=== PATIENT | male | born 1940 | race Caucasian/White ===

== ENCOUNTER 2019-02-05 08:32 | Day surgery (SDC) | payer BC, MEDICARE ==
[~2019-02-05 08:32] MED LIST: Lactated Ringers 1,000 ML IV PRN; Sodium Chloride 0.9% 10 ML Syringe FLUSH PRN
[2019-02-05] MEDS ORDERED: fentaNYL 100 MCG/2 ML SDV IV ONE (08:33)
[2019-02-05] MEDS ORDERED: Midazolam 1 MG/ML 2 ML SDV IV ONE (08:33)
[2019-02-05 11:05] VITALS: PULSE 59
[2019-02-05 11:06] VITALS: BP 124/69
--- NOTE | 2019-02-06 09:13 | OR ---
DATE OF OPERATION: 02/05/2019 SURGEON: Mindy Iniguez MD PREOPERATIVE DIAGNOSIS: Visually significant cataract, right eye. POSTOPERATIVE DIAGNOSIS: Visually significant cataract, right eye. PROCEDURES PERFORMED: Phacoemulsification with intraocular lens placement, right eye. ASSISTANTS: None. ANESTHESIA: Local with sedation. COMPLICATIONS: None. BLOOD LOSS: None. IMPLANTS: A 19.5 diopter lens implanted. CDE: 15.24. DESCRIPTION OF PROCEDURE: After risks and benefits were reviewed with the patient, consent was obtained in the preoperative area, and the operative eye was marked with a surgical pen. In the preoperative area, a pledget was used to dilate the pupil consisting of a mixture of phenylephrine 10%, cyclopentolate 2%, moxifloxacin 0.5%, and bupivacaine 0.75%. The patient was taken to the operating room, where a time-out was performed, and the patient was placed under monitored anesthesia care. Topical tetracaine was used for anesthesia. The operative eye was prepped and draped for ophthalmic surgery, and the microscope was brought into position and focussed. A paracentesis incision was made, followed by injection of preservative-free 1% lidocaine into the anterior chamber, followed by injection of Viscoat into the anterior chamber. A microkeratome blade was used to make a corneal limbal incision temporarily. A cystotome was used to make the beginning of the capsulorrhexis, which was carried around 360 degrees in a curvilinear fashion using Utrata forceps. A Anderson cannula with BSS was used to hydrodissect and hydrodelineate the nucleus. The nucleus was removed in a divide and conquer manner using phacoemulsification. Irrigation and aspiration were used to remove the remaining cortical material. Provisc was used to inflate the capsular bag, and a pre-loaded 19.5 diopter lens, serial number [id number] was injected into the capsular bag. A Sinskey hook was used to position and center the lens. Next, irrigation and aspiration was used to remove any remaining viscoelastic and cortical material from the anterior chamber. BSS on a cannula was used to inflate the anterior chamber and hydrate the wound. The wound was checked and found to be watertight. 1 mg of Moxifloxacin was injected into the anterior chamber. Drapes were removed and the eye was cleaned. A drop of brimonidine 0.15% and a drop of TobraDex was placed. The eye was shielded, and the patient was taken to the recovery room in stable condition. /[id number] RADHA/CHERYL CC: KM CHARLES PA-C
== END 2019-02-05 11:00 | disposition home or self-care (01) ==
LOC: FB.SDS 08:32
PROVIDERS: ATTEND Ophthalmology
DX: H25.13 Age-related nuclear cataract, bilateral (principal); H04.129 Dry eye syndrome of unspecified lacrimal gland; H02.886 Meibomian gland dysfunction of left eye, unspecified eyelid; H02.883 Meibomian gland dysfunction of right eye, unspecified eyelid; H35.362 Drusen (degenerative) of macula, left eye; I25.119 Atherosclerotic heart disease of native coronary artery with unspecified angina pectoris; I44.0 Atrioventricular block, first degree; E78.00 Pure hypercholesterolemia, unspecified; Z95.5 Presence of coronary angioplasty implant and graft; Z87.891 Personal history of nicotine dependence; Z79.82 Long term (current) use of aspirin; Z79.899 Other long term (current) drug therapy
CPT/HCPCS: 00142; 66984; J2250; J3010; V2632

== ENCOUNTER 2019-02-18 09:21 | Day surgery (SDC) | payer BC ==
[2019-02-18] MEDS ORDERED: Sodium Chloride 0.9% 10 ML Syringe FLUSH PRN (09:30)
[2019-02-18] MEDS ORDERED: Lactated Ringers 1,000 ML IV PRN (09:30)
[2019-02-18] MEDS ORDERED: Midazolam 1 MG/ML 2 ML SDV IV ONE (11:22)
[2019-02-18] MEDS ORDERED: fentaNYL 100 MCG/2 ML SDV IV ONE (11:22)
[2019-02-18 14:50] VITALS: BP 134/59; PULSE 49
--- NOTE | 2019-02-19 08:48 | OR ---
DATE OF OPERATION: 02/18/2019 SURGEON: Mindy Iniguez MD PREOPERATIVE DIAGNOSIS: Visually significant cataract, left eye. POSTOPERATIVE DIAGNOSIS: Visually significant cataract, left eye. PROCEDURES PERFORMED: Phacoemulsification with intraocular lens placement, left eye. ASSISTANTS: None. ANESTHESIA: Local with sedation. COMPLICATIONS: None. BLOOD LOSS: None. IMPLANTS: Konrad AU00T0, 20.0 diopter lens implanted. CDE: 7.39. DESCRIPTION OF PROCEDURE: After risks and benefits were reviewed with the patient, consent was obtained in the preoperative area, and the operative eye was marked with a surgical pen. In the preoperative area, a pledget was used to dilate the pupil consisting of a mixture of phenylephrine 10%, cyclopentolate 2%, moxifloxacin 0.5%, and bupivacaine 0.75%. The patient was taken to the operating room, where a time-out was performed, and the patient was placed under monitored anesthesia care. Topical tetracaine was used for anesthesia. The operative eye was prepped and draped for ophthalmic surgery, and the microscope was brought into position and focussed. A paracentesis incision was made, followed by injection of preservative-free 1% lidocaine into the anterior chamber, followed by injection of Viscoat into the anterior chamber. A microkeratome blade was used to make a corneal limbal incision temporarily. A cystotome was used to make the beginning of the capsulorrhexis, which was carried around 360 degrees in a curvilinear fashion using Utrata forceps. A Anderson cannula with BSS was used to hydrodissect and hydrodelineate the nucleus. The nucleus was removed in a divide and conquer manner using phacoemulsification. Irrigation and aspiration were used to remove the remaining cortical material. Provisc was used to inflate the capsular bag, and a pre-loaded AU00T0, 20.0 diopter lens, serial number [id number] was injected into the capsular bag. A Sinskey hook was used to position and center the lens. Next, irrigation and aspiration was used to remove any remaining viscoelastic and cortical material from the anterior chamber. BSS on a cannula was used to inflate the anterior chamber and hydrate the wound. The wound was checked and found to be watertight. 1 mg of Moxifloxacin was injected into the anterior chamber. Drapes were removed and the eye was cleaned. A drop of brimonidine 0.15% and a drop of TobraDex was placed. The eye was shielded, and the patient was taken to the recovery room in stable condition. /[id number] RADHA/CHERYL cc: Vinay Gray [facility] cc: EITAN Forrester
== END 2019-02-18 12:00 | disposition home or self-care (01) ==
LOC: FB.SDS 09:21
PROVIDERS: ATTEND Ophthalmology
DX: H25.12 Age-related nuclear cataract, left eye (principal); H02.886 Meibomian gland dysfunction of left eye, unspecified eyelid; H02.883 Meibomian gland dysfunction of right eye, unspecified eyelid; H35.3190 Nonexudative age-related macular degeneration, unspecified eye, stage unspecified; H04.123 Dry eye syndrome of bilateral lacrimal glands; H35.362 Drusen (degenerative) of macula, left eye; I25.119 Atherosclerotic heart disease of native coronary artery with unspecified angina pectoris; E78.00 Pure hypercholesterolemia, unspecified; Z98.41 Cataract extraction status, right eye; Z96.1 Presence of intraocular lens; Z95.5 Presence of coronary angioplasty implant and graft; Z87.891 Personal history of nicotine dependence; Z79.82 Long term (current) use of aspirin; Z79.899 Other long term (current) drug therapy
CPT/HCPCS: 00142; 66984; J2250; J3010; V2632

== ENCOUNTER 2019-04-15 17:23 | Emergency (ER) | payer BC ==
[2019-04-15 17:53] VITALS: BP 90/58; PULSE 113
[2019-04-15] MEDS ORDERED: Sodium Chloride 0.9% 10 ML Syringe FLUSH PRN (17:57)
--- NOTE | 2019-04-15 17:57 | EDM.PDOC ---
ED HPI GENERAL MEDICAL PROBLEM - General Chief Complaint: Cardiovascular Problem Stated Complaint: LIGHT HEADED, HEART SKIPPING BEATS Time Seen by Provider: 04/15/19 17:30 - History of Present Illness INITIAL COMMENTS - FREE TEXT/NARRATIVE: was out playing golf this afternoon and around 230pm started feeling lightheaded , clammy and short of breath. Continued to play the rest of the 9 holes but was feeling weak at the end. Went home and laid down for a minute then got up to take a cold shower. Then after shower still felt quite weak and sweaty so laid down then brought to ER by his . Took a nitro about 20 minutes prior to arrival. Otherwise has not been taking nitro, but was given it after this spring. Had 3 stents placed 2 years ago, and a stress test plus angiogram this spring. Had an episode similar to the above in January, was evaluated in ER and did not find anything. No diabetes. Mild nausea, but no vomiting. - Related Data Allergies Allergy/AdvReac Type Severity Reaction Status Date / Time No Known Allergies Allergy Verified 04/15/19 21:18 Home Meds: Home Meds Aspirin 81 mg PO DAILY 05/27/13 [History] Multivitamin [Multi-Vitamin Daily] 1 each PO DAILY 05/27/13 [History] Sildenafil [Viagra] 50 - 100 mg PO ASDIRECTED PRN 05/27/13 [History] Terbinafine [LamISIL AT 1% Crm] 30 gm .XX ASDIRECTED PRN 05/27/13 [History] Nitroglycerin 1 tab PO ASDIRECTED PRN 02/04/19 [History] atorvaSTATin Calcium [Atorvastatin Calcium] 1 tab PO BEDTIME 02/04/19 [History] Past Medical History HEENT History: Reports: Cataract Cardiovascular History: Reports: Arrhythmia, CAD, Stents, Other (See Below) Other Cardiovascular History: FIRST DEGREE AV BLOCK Genitourinary History: Reports: Other (See Below) Other Genitourinary History: ELEVATED PSA, ERECTILE DYSFUNCTION Neurological History: Reports: Other (See Below) Other Neuro History: VASOVAGAL SYNCOPE - Infectious Disease History Infectious Disease History: Reports: None - Past Surgical History HEENT Surgical History: Reports: Cataract Surgery Other HEENT Surgeries/Procedures: HAD IN RIGHT EYE Cardiovascular Surgical History: Reports: Coronary Artery Stent GI Surgical History: Reports: Cholecystectomy, Colonoscopy Social & Family History - Family History Family Medical History: Noncontributory - Tobacco Use Smoking Status *Q: Former Smoker (quit 50 years ago) - Caffeine Use Caffeine Use: Reports: Coffee - Alcohol Use Alcohol Use History: Yes - Recreational Drug Use Recreational Drug Use: No - Living Situation & Occupation Living situation: Reports: Occupation: Retired ED ROS GENERAL - Review of Systems Review Of Systems: ROS reveals no pertinent complaints other than HPI. ED EXAM, GENERAL - Physical Exam Exam: See Below Free Text/Narrative:: General: alert, pleasant and no acute distress. Head atraumatic, pupils equal and reactive, neck supple. Throat initially slightly dry. Heart tachycardic, I do not hear a murmur. Lungs clear throughout. Peripheral pulses equal bilaterally. No lower extremity edema. Abdomen + bowel sounds, soft, nontender. Skin without lesions or rashes. Muscle strength equal side to side Course - Vital Signs Text/Narrative:: initial impression - tachycardic, hypotensive, fluid bolus started, ASA ordered. EKG appears to be new LBBB, though slightly widened QRS, ?ST elevation vs repol in V1-V3. Faxed immediately to cardiology up at [facility]. Labs obtained. Last Recorded V/S: Last Vital Signs Temp 36.6 C 04/15/19 20:00 Pulse 113 H 04/15/19 17:23 Resp 20 04/15/19 17:23 BP 90/58 L 04/15/19 17:23 Pulse Ox 99 04/15/19 17:23 - Orders/Labs/Meds Orders: Active Orders 24 hr Category Date Time Status EKG Documentation Completion [RC] ASDIRECTED Care 04/15/19 17:58 Active EKG Documentation Completion [RC] ASDIRECTED Care 04/15/19 18:30 Active EKG Documentation Completion [RC] ASDIRECTED Care 04/15/19 19:15 Active Chest 1V Frontal [CR] Stat Exams 04/15/19 17:57 Taken Peripheral IV Insertion Adult [OM.PC] Routine Oth 04/15/19 17:57 Ordered EKG 12 Lead [EK] Routine Ther 04/15/19 17:58 Ordered EKG 12 Lead [EK] Routine Ther 04/15/19 18:30 Ordered EKG 12 Lead [EK] Routine Ther 04/15/19 19:15 Ordered Labs: Laboratory Tests 04/15/19 04/15/19 04/15/19 Range/Units 17:36 17:36 17:36 WBC 6.3 (4.5-12.0) X10-3/uL RBC 4.24 L (4.30-5.75) x10(6)uL Hgb 14.0 (13.5-17.8) g/dL Hct 42.5 (30.0-51.3) % MCV 100.3 H (80-96) fL MCH 33.1 (27.7-33.6) pg MCHC 33.0 (32.2-35.4) g/dL RDW 13.2 (11.5-15.5) % Plt Count 154 (125-369) X10(3)uL MPV 8.9 (7.4-10.4) fL Add Manual Diff Yes Neutrophils % (Manual) 73 (46-82) % Band Neutrophils % 2 (0-6) % Lymphocytes % (Manual) 16 (13-37) % Monocytes % (Manual) 9 (4-12) % PT 10.7 (8.7-11.1) INR 1.10 (0.89-1.13) Sodium 141 (135-145) mmol/L Potassium 4.8 (3.5-5.3) mmol/L Chloride 106 (100-110) mmol/L Carbon Dioxide 24 (21-32) mmol/L BUN 26 H (7-18) mg/dL Creatinine 1.7 H (0.70-1.30) mg/dL Est Cr Clr Drug Dosing 36.85 mL/min Estimated GFR (MDRD) 39 L (>60) BUN/Creatinine Ratio 15.3 (9-20) Glucose 106 (80-116) mg/dL Calcium 9.2 (8.6-10.2) mg/dL Troponin I (<0.017-0.056) ng/mL 04/15/19 04/15/19 04/15/19 Range/Units 17:36 19:55 19:55 WBC (4.5-12.0) X10-3/uL RBC (4.30-5.75) x10(6)uL Hgb (13.5-17.8) g/dL Hct (30.0-51.3) % MCV (80-96) fL MCH (27.7-33.6) pg MCHC (32.2-35.4) g/dL RDW (11.5-15.5) % Plt Count (125-369) X10(3)uL MPV (7.4-10.4) fL Add Manual Diff Neutrophils % (Manual) (46-82) % Band Neutrophils % (0-6) % Lymphocytes % (Manual) (13-37) % Monocytes % (Manual) (4-12) % PT (8.7-11.1) INR (0.89-1.13) Sodium 142 (135-145) mmol/L Potassium 4.6 (3.5-5.3) mmol/L Chloride 108 (100-110) mmol/L Carbon Dioxide 26 (21-32) mmol/L BUN 24 H (7-18) mg/dL Creatinine 1.3 (0.70-1.30) mg/dL Est Cr Clr Drug Dosing 48.18 mL/min Estimated GFR (MDRD) 53 L (>60) BUN/Creatinine Ratio 18.5 (9-20) Glucose 96 (80-116) mg/dL Calcium 8.7 (8.6-10.2) mg/dL Troponin I 0.020 0.032 (<0.017-0.056) ng/mL Meds: Medications Discontinued Medications Generic Name Dose Route Start Last Admin Trade Name Freq PRN Reason Stop Dose Admin Aspirin 243 mg 04/15/19 17:58 04/15/19 17:42 Aspirin PO 04/15/19 17:59 243 mg ONETIME ONE Administration Sodium Chloride 1,000 mls @ 999 mls/hr 04/15/19 17:58 04/15/19 17:45 Normal Saline IV 04/15/19 18:58 999 mls/hr .BOLUS ONE Administration Sodium Chloride 10 ml 04/15/19 17:57 04/15/19 17:35 Saline Flush FLUSH 10 ml ASDIRECTED PRN Administration Keep Vein Open - Re-Assessments/Exams Free Text/Narrative Re-Assessment/Exam: 04/15/19 old EKG found from January. Normal at that time but with long first degree. Discussed with [facility], who recommended to treat as ACS r/o with additional EKG and troponin. Labs not back yet. Troponin returns 0.02 creatinine slightly elevated 1.7 CBC within normal limits, lytes ok repeat EKG - slower rate, still sinus, upsloping ST in V2-V3. Widened QRS. HR improved to 85, BP now 115/65 patient asymptomatic while lying on bed, feels much better after some fluids sign out given to oncoming colleague at [address] Langston documentation for further course Departure - Departure Time of Disposition: 00:00 Disposition: Home, Self-Care 01 Condition: Good Clinical Impression: Dehydration after exertion Instructions: Dehydration, Elderly, [id number] Referrals: Dipak Doty MD [Primary Care Provider] - 1 Day Forms: ED Department Discharge Care Plan Goals: Follow up with Dr. Doty tomorrow. - My Orders Last 24 Hours: My Active Orders 04/15/19 17:57 Chest 1V Frontal [CR] Stat Peripheral IV Insertion Adult [OM.PC] Routine 04/15/19 17:58 EKG Documentation Completion [RC] ASDIRECTED EKG 12 Lead [EK] Routine 04/15/19 18:30 EKG Documentation Completion [RC] ASDIRECTED EKG 12 Lead [EK] Routine 04/15/19 19:15 EKG Documentation Completion [RC] ASDIRECTED EKG 12 Lead [EK] Routine - Assessment/Plan Last 24 Hours: My Active Orders 04/15/19 17:57 Chest 1V Frontal [CR] Stat Peripheral IV Insertion Adult [OM.PC] Routine 04/15/19 17:58 EKG Documentation Completion [RC] ASDIRECTED EKG 12 Lead [EK] Routine 04/15/19 18:30 EKG Documentation Completion [RC] ASDIRECTED EKG 12 Lead [EK] Routine 04/15/19 19:15 EKG Documentation Completion [RC] ASDIRECTED EKG 12 Lead [EK] Routine
[2019-04-15] MEDS ORDERED: Sodium Chloride 0.9% 1,000 ML IV ONE (17:58)
[2019-04-15] MEDS ORDERED: Aspirin 81 MG Tab.Chew PO ONE (17:58)
--- NOTE | 2019-04-16 07:54 | ER ---
DATE SEEN: 04/15/2019 REASON FOR VISIT: Not feeling well. HISTORY OF PRESENT ILLNESS: A 79-year-old, who came in because of low blood pressure, dehydration after golfing most of the day in the heat. He was found to have low blood pressure on admission, pulse of 113. He was given 1 L of normal saline. He feels much better and ready to go home. Denies chest pain or shortness of breath. PAST MEDICAL HISTORY: Coronary artery disease, hypertension, hyperlipidemia. MEDICATIONS: Reviewed. PHYSICAL EXAMINATION: GENERAL: He has a blood pressure today of 90/58, pulse is 113, and temp 95.7. ENT: Negative. CHEST: Clear. CARDIOVASCULAR: Normal. EXTREMITIES: No edema. NEUROLOGIC: Normal. LABORATORY DATA: Labs were reviewed including a troponin I of 0.020, white cell count of 6.3, and creatinine 1.7. EKG was reviewed and the most recent is normal sinus rhythm. FINAL IMPRESSION: Dehydration with acute kidney injury. PLAN: He got 1 L of normal saline, repeated labs, and followup was arranged in the next 1 day with PCP. /[id number] JULIA/CHERYL
--- NOTE | 2019-04-16 11:38 | CR ---
INDICATION: Dyspnea. CHEST: An AP upright view of the chest was obtained 04/15/19 and revealed the heart to be normal in size and shape. The aorta is minimally tortuous with calcification in the arch. Overlying EKG leads are noted. Degenerative changes are noted in the mid thoracic spine. A definite active infiltrate or effusion was not identified. No definite evidence of CHF is seen. IMPRESSION: No acute process. MTDD
== END 2019-04-15 20:55 | disposition home or self-care (01) ==
LOC: FB.ED 17:23
DX: E86.0 Dehydration (principal); N17.9 Acute kidney failure, unspecified; I10 Essential (primary) hypertension; I25.10 Atherosclerotic heart disease of native coronary artery without angina pectoris; Z87.891 Personal history of nicotine dependence; Z79.82 Long term (current) use of aspirin
CPT/HCPCS: 36415; 71045; 80048; 84484; 85025; 85610; 93005; 96360; 99285; A9270; J7030